=== PATIENT | female | born 1995 | race Caucasian/White ===

== ENCOUNTER 2016-12-08 13:44 | Emergency (ER) | payer OTHER ==
[2016-12-08 14:05] VITALS: BP 128/69; PULSE 75; RESP 18; TEMP 97
--- NOTE | 2016-12-08 14:31 | ED ---
General Adult HPI - General Chief complaint: ENT Stated complaint: Jaw Pain Time Seen by Provider: 12/08/16 14:00 Source: patient, RN notes reviewed Mode of arrival: ambulatory Limitations: no limitations - History of Present Illness Initial comments: This is a 21-year-old female comes to the emergency department complaining of pain in her TMJ on the left side. 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 Patient states has not follow-up with her dentist. Patient states there is no pain if she starts drinking again anything starts to hurt. Patient also states palpating the joint also hurts. Patient has not noticed any fever or chills. Patient has noticeable swelling or redness. There is no area of drainage. Patient denies any ear pain. - Related Data Home Medications Medication Instructions Recorded Confirmed No Known Home Medications [No 12/08/16 12/08/16 Known Home Medications] Previous Rx's Medication Instructions Recorded Ibuprofen [Motrin] 600 mg PO Q6HR PRN #20 tab 12/08/16 Allergies Allergy/AdvReac Type Severity Reaction Status Date / Time acetaminophen [From [place]] AdvReac Unknown Verified 12/08/16 14:06 hydrocodone [From [place]] AdvReac Unknown Verified 12/08/16 14:06 Review of Systems ROS Statement: Those systems with pertinent positive or pertinent negative responses have been documented in the HPI. ROS Other: All systems not noted in ROS Statement are negative. Past Medical History Past Medical History: No Reported History History of Any Multi-Drug Resistant Organisms: None Reported Past Surgical History: Section Past Psychological History: No Psychological Hx Reported Smoking Status: Never smoker Past Alcohol Use History: None Reported Past Drug Use History: None Reported General Exam - General Exam Comments Initial Comments: GENERAL Patient is well-developed and well-nourished. Patient is in mild distress. EYES Patient's pupils are equal and round. Extraocular motion is intact ENT Patient's TMJ joint is tender to palpation there is no clicking noted however at rest the patient is pain-free and only with chewing or palpating the joint as the patient denied any pain. SKIN Unremarkable NEURO The patient is alert and oriented 3 PYSCH Patient has normal interpersonal interactions. Limitations: no limitations Course Vital Signs 12/08/16 13:59 Temperature 97.0 F L Pulse Rate 75 Respiratory 18 Rate Blood Pressure 128/69 O2 Sat by Pulse 98 Oximetry Disposition Clinical Impression: TMJ inflammation Disposition: HOME SELF-CARE Condition: Good Instructions: Temporomandibular Disorder (ED) Additional Instructions: Patient should follow-up with a dentist for a bite splint. Prescriptions: Ibuprofen [Motrin] 600 mg PO Q6HR PRN #20 tab PRN Reason: For pain Referrals: Jimmy Felipe MD [Primary Care Provider] - 1-2 days Time of Disposition: 14:30
== END 2016-12-08 14:49 | disposition home or self-care (01) ==
LOC: EC 13:44
DX: M27.2 Inflammatory conditions of jaws (principal); Z88.5 Allergy status to narcotic agent
CPT/HCPCS: 99283